=== PATIENT | male | born 1990 | race African-American/Black ===

== ENCOUNTER 2017-04-02 02:50 | Emergency (ER) | payer SELFPAY ==
[~2017-04-02 02:50] MED LIST: AUGM875 PO; IBUP-238 PO; Z.0.NO CURRENT MEDS
[2017-04-02 02:53] VITALS: BP 175/88; PULSE 104; RESP 18; TEMP 99; O2SAT 97
[2017-04-02] MEDS ORDERED: diphenhydrAMINE HCL 50 MG/ML VIAL IV PUSH ONE (03:30)
[2017-04-02] MEDS ORDERED: METOCLOPRAMIDE INJ 10 MG in SODIUM CHLORIDE 0.9% INJ 50 ML IV ONE (03:30)
[2017-04-02] MEDS ORDERED: SODIUM CHLOR 0.9% 1000 ML INJ 1,000 ML IV ONE (03:30)
[2017-04-02] MEDS ORDERED: KETOROLAC TROMETHAMINE 30 MG/ML (IVP) VIAL IV PUSH ONE (03:30)
--- NOTE | 2017-04-02 05:56 | PD ---
HPI Chief Complaint: Headache Time Seen by Provider: 03:06 Travel History International Travel<30 days: No Contact w/Intl Traveler<30days: No Traveled to known affect area: No History of Present Illness HPI Patient comes in with a headache behind his left eye it does not radiate he has no neck pain he has no fever he had similar pain 4 months ago he had similar treatment with resolution at that time he had a URI but today he just has a headache PFSH Past Medical History Medical History: Denies Significant Hx Past Surgical History Surgical History: No Previous Surgery Social History Alcohol Use: No Tobacco Use: No Substance Use: No Allergies-Medications (Allergen,Severity, Reaction): Coded Allergies: No Known Allergies (Verified Adverse Reaction, Unknown, 04/02/17) Reported Meds & Prescriptions Reported Meds & Active Scripts Active Review of Systems Except as stated in HPI: all other systems reviewed are Neg HENT: Positive: Headaches Physical Exam Narrative GENERAL: Appears to have a headache holding his left forehead SKIN: Warm and dry. HEAD: Atraumatic. Normocephalic. EYES: Pupils equal and round. No scleral icterus. No injection or drainage. ENT: No nasal bleeding or discharge. Mucous membranes pink and moist. NECK: Trachea midline. No JVD. CARDIOVASCULAR: Regular rate and rhythm. RESPIRATORY: No accessory muscle use. Clear to auscultation. Breath sounds equal bilaterally. GASTROINTESTINAL: Abdomen soft, non-tender, nondistended. Hepatic and splenic margins not palpable. MUSCULOSKELETAL: Extremities without clubbing, cyanosis, or edema. No obvious deformities. NEUROLOGICAL: Awake and alert. No obvious cranial nerve deficits. Motor grossly within normal limits. Five out of 5 muscle strength in the arms and legs. Normal speech. PSYCHIATRIC: Appropriate mood and affect; insight and judgment normal. Data Data Last Documented VS Vital Signs Date Time Temp Pulse Resp B/P (MAP) Pulse Ox O2 Delivery O2 Flow Rate FiO2 04/02/17 02:53 99.0 104 18 175/88 (117) 97 Room Air Orders Orders Ketorolac Inj (Toradol Inj) (04/02/17 03:30) Diphenhydramine Inj (Benadryl Inj) (04/02/17 03:30) Metoclopramide Inj (Reglan Inj) (04/02/17 03:30) Sodium Chlor 0.9% 1000 Ml Inj (Ns 1000 M (04/02/17 03:30) Ed Discharge Order (04/02/17 06:00) MDM Medical Decision Making Medical Screen Exam Complete: Yes Emergency Medical Condition: Yes Differential Diagnosis Simple Headache versus sinus headache versus cluster headache versus tension headache versus upper respiratory infection Narrative Course Patient is given a liter of fluid Benadryl 25 IV and Reglan 10 and Toradol 30 with complete relief of his symptoms appropriate for discharge with follow-up with his private doctor Diagnosis Primary Impression: Head and face pain Patient Instructions: Acute Headache (ED), General Instructions Disposition: 01 DISCHARGE HOME Condition: Juan Saavedra MD Apr 02, 2017 05:56
== END 2017-04-02 06:12 | disposition home or self-care (01) ==
LOC: NEPC 02:50
DX: R51 Headache (principal)
CPT/HCPCS: 96365; 96375; 99284; J1200; J1885; J2765; J7030